=== PATIENT | female | born 1970 | race Caucasian/White ===

== ENCOUNTER 2017-11-16 22:11 | Emergency (ER) | payer MEDICAID ==
--- NOTE | 2017-11-16 22:53 | ED PDOC ---
Arrival/HPI - General Historian: Patient <Inocente Zamarripa - Last Filed: 11/17/17 00:54> <Guillermo Garibay - Last Filed: 11/17/17 01:29> - General Time Seen by Provider: 11/16/17 22:49 - History of Present Illness Narrative History of Present Illness (Text): 11/16/17 22:49 47 y/o female, no significant pmh, nkda, c/o lt. ankle pain s/p inversion injury x 2 hours. Aching pain, aggravated by inversion, happened while walking down the stair and inversion injury, no calf pain, no foot pain, no numbness or tingling, no rash, no other medical or psychological complaints. (Inocente Zamarripa) Past Medical History - Provider Review Nursing Documentation Reviewed: Yes - Infectious Disease Hx of Infectious Diseases: None - Tetanus Immunization Tetanus Immunization: Up to Date - Cardiac Hx Hypertension: Yes - Psychiatric Hx Depression: No Hx Emotional Abuse: No Hx Physical Abuse: No Hx Substance Use: No - Past Surgical History Past Surgical History: No Previous - Anesthesia Hx Anesthesia: No Hx Anesthesia Reactions: No Hx Malignant Hyperthermia: No - Suicidal Assessment Feels Threatened In Home Enviroment: No <Inocente Zamarripa - Last Filed: 11/17/17 00:54> Family/Social History - Physician Review Nursing Documentation Reviewed: Yes Family/Social History: Unknown Family HX Smoking Status: Never Smoked Hx Alcohol Use: No Hx Substance Use: No Hx Substance Use Treatment: No <Inocente Zamarripa - Last Filed: 11/17/17 00:54> Allergies/Home Meds <Inocente Zamarripa - Last Filed: 11/17/17 00:54> <Guillermo Garibay - Last Filed: 11/17/17 01:29> Allergies/Adverse Reactions: Allergies No Known Allergies Allergy (Verified 12/02/14 19:31) Home Medications: Home Meds Medication Instructions Recorded Confirmed Amoxicillin/Potassium Clav 1 tab PO BID 12/02/14 12/02/14 [Amoxicillin and Clavulanate Potassium 500 mg-] Diphenhydramine HCl/Zinc Acet 1 appl TD PRN PRN 12/02/14 12/02/14 [Benadryl 1%-0.1%] Hydrocortisone 1% Cream [Cortizone 1 appl TD PRN PRN 12/02/14 12/02/14 1% Cream] Metoprolol Tartrate [Lopressor] 100 mg PO DAILY 12/02/14 12/02/14 Review of Systems - Review of Systems Constitutional: absent: Fatigue, Fevers Eyes: absent: Vision Changes ENT: absent: Hearing Changes Respiratory: absent: SOB, Cough Cardiovascular: absent: Chest Pain Gastrointestinal: absent: Abdominal Pain, Nausea, Vomiting Musculoskeletal: Arthralgias, Joint Swelling. absent: Back Pain, Neck Pain, Myalgias Skin: absent: Rash Neurological: absent: Headache, Dizziness Psychiatric: absent: Anxiety, Depression, Suicidal Ideation <Inocente Zamarripa - Last Filed: 11/17/17 00:54> Physical Exam Vital Signs Reviewed: Yes Temperature: Afebrile Blood Pressure: Normal Pulse: Regular Respiratory Rate: Normal Appearance: Positive for: Well-Appearing, Non-Toxic, Comfortable Pain Distress: None Mental Status: Positive for: Alert and Oriented X 3 - Systems Exam Head: Present: Atraumatic, Normocephalic Pupils: Present: PERRL Extroacular Muscles: Present: EOMI Conjunctiva: Present: Normal Mouth: Present: Moist Mucous Membranes Pharnyx: No: ERYTHEMA, EXUDATE, TONSILS ENLARGED Nose (Internal): No: Normal Inspection, No Active Bleeding, Moist, Engorged, Edematous, Boggy, Clear Mucous, Rhinorrhea, Purulent Mucous, Septal Deviation, Septal Hematoma, Epistaxis, Other Neck: Present: Normal Range of Motion Respiratory/Chest: Present: Clear to Auscultation, Good Air Exchange. No: Respiratory Distress, Accessory Muscle Use Cardiovascular: Present: Regular Rate and Rhythm, Normal S1, S2. No: Murmurs Abdomen: Present: Normal Bowel Sounds. No: Tenderness, Distention, Peritoneal Signs Back: Present: Normal Inspection Upper Extremity: Present: Normal Inspection. No: Cyanosis, Edema Lower Extremity: Present: Normal Inspection, Other (Rt. ankle/foot: +ttp on the lateral malleolus with mild swelling, no deformity, no foot tenderness, negative luis fernando and devine signs, +DPPT Pulses, capillary refill< 2 seconds, neurovascular intact. ). No: Edema Neurological: Present: GCS=15, CN II-XII Intact, Speech Normal Skin: Present: Warm, Dry, Normal Color. No: Rashes Psychiatric: Present: Alert, Oriented x 3, Normal Insight, Normal Concentration <Inocente Zamarripa - Last Filed: 11/17/17 00:54> Vital Signs Temp Pulse Resp BP Pulse Ox 11/17/17 00:51 98.6 F 85 18 169/97 H 98 Medical Decision Making <Inocente Zamarripa - Last Filed: 11/17/17 00:54> <Guillermo Garibay - Last Filed: 11/17/17 01:29> ED Course and Treatment: 11/16/17 22:56 -Lt. ankle xray -tylenol -observe and reassesss 11/16/17 23:49 -Urine hcg is negative. -Lt. ankle show no fracture or dislocation, jessie wrap, crutches. -Discharge home with jessie wrap, crutches, naproxen, follow up with your own pmd and orthopedic within2 days, return to the ER for any new or worsening signs or symptoms. (Inocente Zamarripa) - RAD Interpretation Radiology Orders: 11/16/17 22:56 ANKLE LEFT 3 VIEWS ROUTINE [RAD] Stat - Medication Orders Current Medication Orders: Discontinued Medications Acetaminophen (Tylenol 325mg Tab) 650 mg PO STAT STA Stop: 11/16/17 22:57 - PA / RN PROCEDURES / Resident Statement / has reviewed & agrees with the documentation as recorded. <Inocente Zamarripa - Last Filed: 11/17/17 00:54> - PA / RN PROCEDURES / Resident Statement OCHOA has reviewed & agrees with the documentation as recorded. <Guillermo Garibay - Last Filed: 11/17/17 01:29> Disposition/Present on Arrival - Present on Arrival Any Indicators Present on Arrival: No History of DVT/PE: No History of Uncontrolled Diabetes: No Urinary Catheter: No History of Decub. Ulcer: No History Surgical Site Infection Following: None - Disposition Have Diagnosis and Disposition been Completed?: Yes Disposition Time: 22:56 Patient Plan: Discharge <Inocente Zamarripa - Last Filed: 11/17/17 00:54> <Guillermo Garibay - Last Filed: 11/17/17 01:29> - Disposition Diagnosis: Ankle injury, Ankle pain Disposition: HOME/ ROUTINE Patient Problems: Current Active Problems Problem Status Onset Ankle injury Acute Ankle pain Acute Condition: GOOD Additional Instructions: -Discharge home with jessie wrap, crutches, naproxen, follow up with your own pmd and orthopedic within2 days, return to the ER for any new or worsening signs or symptoms. Prescriptions: Naproxen 500 mg PO BID PRN #20 tablet PRN Reason: Other Referrals: Rosie Loza MD [Primary Care Provider] - Follow up with primary Reuben Shukla MD [Staff Provider] - Follow up with primary Forms: WORK NOTE
[2017-11-16 22:55] VITALS: BMI 30.9
[2017-11-17 00:52] VITALS: RESP 18
[2017-11-17 03:54] VITALS: BP 142/80; PULSE 80; TEMP 9.4; O2SAT 99
--- NOTE | 2017-11-17 08:27 | RAD ---
PROCEDURE: Left Ankle Radiographs. HISTORY: lt. ankle inversion injury and pain COMPARISON: None FINDINGS: BONES: Normal. No fracture. JOINTS: Normal. No osteoarthritis. Ankle mortise maintained. Talar dome intact SOFT TISSUES: Normal. OTHER FINDINGS: None. IMPRESSION: Normal left ankle radiographs.
== END 2017-11-17 01:25 | disposition home or self-care (01) ==
LOC: ED 22:11
DX: S99.912A Unspecified injury of left ankle, initial encounter (principal); X50.0XXA Overexertion from strenuous movement or load, initial encounter; Y92.89 Other specified places as the place of occurrence of the external cause